=== PATIENT | male | born 1965 | race Caucasian/White ===

== ENCOUNTER 2018-09-30 21:15 | Inpatient (IN) ==
--- NOTE | 2018-09-30 22:25 | Emergency Department Note ---
Disposition Clinical Impression: Abdominal pain, Retroperitoneal tumor Disposition: Admitted As Inpatient Condition: Fair [facility]Primary Care Provider[facility] - Forms: Work/School Release Time of Disposition: 22:00 Abdominal Pain HPI - General Chief Complaint: ED Abdominal Pain Stated Complaint: mass on Kidney Time Seen by Provider: 09/30/18 21:17 Source: patient, EMS Mode of arrival: ambulatory Limitations: no limitations Nursing Notes Reviewed: Yes Vital Signs Reviewed: Yes - History of Present Illness HPI Narrative: 52-year-old male presents emergency department from the [facility] for further evaluation of a retroperitoneal mass. Patient has a large 26.4 x 21 x 30 cm mass in the left retroperitoneum. He was evaluated at the [facility] where he had multiple labs performed and a CT of the abdomen and pelvis. Patient initially sought evaluation secondary to early state ID and a constant abdominal pain over the past few weeks. He should not denies recent weight loss, denies night sweats. Patient denies fever, chills, nausea, vomiting, diarrhea, hematochezia, melena. Pain Scale: 4 - Related Data Home Medications Medication Instructions Recorded Confirmed Fluticasone Propionate Nasal 1 spr NS DAILY 09/30/18 09/30/18 [Flonase] Loratadine [Allergy Relief] 10 mg PO DAILY 09/30/18 09/30/18 Pantoprazole Sodium [Protonix] 40 mg PO DAILY 09/30/18 09/30/18 Allergies Allergy/AdvReac Type Severity Reaction Status Date / Time No Known Allergies Allergy Verified 09/30/18 22:04 All systems ED: reviewed and negative except as stated. Review of Systems: As Per HPI Abdominal Pain PMH - Past Medical History Medical history: Reports: hyperlipidemia, hypertension Male Surgical History: Reports: herniorrhaphy - Social History Smoking status: Never smoker Alcohol use: Reports: none Drug use: Reports: none Physical Exam General: Alert and in no acute distress Skin: Warm, dry, intact Head: Normocephalic and atraumatic Neck: Supple, trachea midline and no tenderness Cardiovascular: RRR, no murmur, normal perfusion Respiratory: CTAB, no wheezing, cough, or respiratory distress Musculoskeletal: Normal strength, no tenderness, swelling or deformity GI: Soft, nontender, distended abdomen Bowel sounds present Neuro: A&O to person, place, time and situation. No focal deficits noted on exam Psychiatric: cooperative and appropriate mood and affect. - General Limitations: no limitations General appearance: alert Course Vital Signs Temperature 98.3 F 09/30/18 21:20 Pulse Rate 95 09/30/18 21:20 Respiratory Rate 18 09/30/18 21:20 Blood Pressure 153/94 09/30/18 21:20 O2 Sat by Pulse Oximetry 98 09/30/18 21:20 Temperature 98.3 F 09/30/18 21:20 Pulse Rate 95 09/30/18 21:20 Respiratory Rate 18 09/30/18 21:20 Blood Pressure 153/94 09/30/18 21:20 O2 Sat by Pulse Oximetry 98 09/30/18 21:20 Oxygen Delivery Oxygen Delivery Room Air Abdominal Pain - MDM Narrative Medical decision making narrative: Patient denied chest pain or shortness of breath. Patient will be admitted to the hospitalist for further care and evaluation of this large mass. - Medical Records Medical records reviewed: Yes I reviewed the patient's medical records. - Lab Data Lab results reviewed: Yes I reviewed the patient's lab results.
--- NOTE | 2018-10-01 00:45 | Internal Med History&Physical ---
<Annalise Perez - Last Filed: 10/01/18 02:17> Date of Encounter: 10/01/18 Time of Encounter: 00:45 Internal Medicine - H&P: HPI Chief complaint: Sent from CT; Left-sided large retroperitoneal mass Admitted From: Home Plans for Post Hospital Care: Home History of present illness: Mr. Watson is a 52 year old male with past medical history significant for hypertension, hyperlipidemia, gout who presents from [facility] after CT of the abdomen and pelvis reveals left-sided retroperitoneal mass and hydronephrosis. Patient endorses 2 weeks of epigastric and right upper quadrant abdominal pain. Associated with pain that comes and goes, occasionally sharp, but usually dull, achy and rated 3/10. Also notes abdominal distention that has persisted over the course of the 2 weeks and even longer before that. Patient states that he has gained approximately 20 pounds from baseline. Associated symptoms include subjective fevers/chills and night sweats, increasing fatigue, weight gain, lethargy, malaise, increase in loose stools, decreased appetite, occasional lower back pain localized more to the left side. Patient was initially concerned about some gallbladder pathology due to right upper quadrant pain, association with intake of fatty foods that resolved when he does not eat. Patient recently had a colonoscopy 5 months ago during which a benign polyp was found and removed. Otherwise endorses no significant past medical history. History of hypertension but not on medication, and history of familial hypertriglyceridemia. Denies smoking, alcohol, drug use. Patient denies headache, lightheadedness/dizziness, vision changes, chest pain, palpitations, shortness of breath, vomiting, dysuria, hematuria, urinary frequency urinary urgency, flank pain. On initial evaluation, vitals were as follows: T = 98.3, HR = 95, RR = 18, BP = 153/94, O2 = 98% on room air CBC: Within normal limits BMP: Slightly elevated BUN/Cr = 23/1.37; GFR = 57.8; otherwise within normal limits LFTs: Within normal limits UA: Negative CT abdomen and pelvis without contrast. 1. 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 Considerations include renal cell carcinoma and other retroperitoneal neoplasm. IV contrast study may be helpful as clinically appropriate. 2. Moderate left hydronephrosis secondary to the large left retroperitoneal mass 3. Small free fluid in the pelvis 4. Splenomegaly Pt will be admitted to hospitalists for further evaluation of left-sided retroperitoneal mass. Past Med Surg Social Fam HX - Past Medical History Attestation: Yes The following information was validated with the patient. Source: patient, old records reviewed, obtained from family Medical history: GERD, hyperlipidemia, hypertension - Past Surgical History Additional surgical history: nasal sx. - Social History Smoking Status: Never smoker Smokeless Tobacco Status: No Alcohol use: none Drug use: none - Family History Mother Living Status: Still Living Hx Family Cardiac Disorders: Yes (htn, afib) Hx Family Endocrine Disorder: Yes (thyroid disease) Father Living Status: Still Living Hx Family Cancer: Yes (prostate cancer) Internal Medicine - H&P: Meds Fluticasone Propionate Nasal [Flonase] 1 spr NS DAILY PRN 09/30/18 [History] Loratadine [Allergy Relief] 10 mg PO DAILY PRN 09/30/18 [History] Pantoprazole Sodium [Protonix] 40 mg PO DAILY 09/30/18 [History] Calcium Citrate 200 mg PO DAILY 10/01/18 [History] Allergy/AdvReac Type Severity Reaction Status Date / Time No Known Allergies Allergy Verified 09/30/18 22:04 All Systems PM: A 10-system review of systems was performed and is negative for pertinent findings except as documented above in the HPI. - Constitutional Constitutional: anorexia, chills, fatigue, fever(s), malaise, night sweats, weight gain, no excessive sweating, no falls, no lethargy, no weakness, no weight loss - EENT Eyes: no blurry vision, no change in vision Ears: no decreased hearing Nose, mouth and throat: no dry mouth, no dysphagia, no facial pain, no nasal discharge, no neck pain, no post-nasal drip, no sinus pressure, no sore throat - Cardiovascular Cardiovascular ROS IM: no chest pain, no diaphoresis, no dyspnea, no dyspnea on exertion, no edema, no irregular heart rhythm, no lightheadedness, no palpitations, no syncope - Respiratory Respiratory: no cough, no dyspnea, no dyspnea on exertion - Gastrointestinal Gastrointestinal: abdominal pain, bloating, diarrhea, early satiety, loose stools, no hematemesis, no hematochezia, no melena, no nausea, no vomiting - Genitourinary Genitourinary ROS male: flank pain, no dysuria, no hematuria, no urinary frequency, no urinary hesitancy, no urinary incontinence, no urinary urgency - Musculoskeletal Musculoskeletal ROS IM: back pain, myalgias - Integumentary Integumentary IM: no rash, no jaundice - Neurological Neurological ROS: no confusion, no dizziness, no headache(s), no paresthesias, no tingling - Psychiatric Psychiatric: change in appetite - Endocrine Endocrine IM: fatigue - Constitutional Vitals: Temp Pulse Resp BP Pulse Ox 98.3 F 88 18 138/87 98 09/30/18 21:20 09/30/18 23:29 09/30/18 23:29 09/30/18 23:29 09/30/18 23:29 General appearance: Present: cooperative, A&O X 3, pleasant, no acute distress, answers questions appropriately Exam: GEN: AOx3; Resting comfortably in bed; NAD; Accompanied by , mother, daughters HEENT: Atraumatic, Normocephalic, EOMI, PERRLA, mucous membranes moist, no scleral icterus CARDIO: RRR, no murmurs, rubs, gallops RESP: CTAB, no wheezes, rales, rhonchi ABD: Distended, firm abdomen; tenderness to palpation in epigastric, RUQ; bowel sounds present; no guarding or rebound; negative Crane's sign; no CVA tenderness NEURO: CN 2-12 intact; no focal deficits EXT: no lower extremity edema b/l; no rashes or lesions; non tender to palpation Internal Med - H&P Results - Labs Labs: Lab results 09/30/18 from [facility]: CBC: WBC = 6.3 HB/HCT = 13.4/40.8 MCV = 82.4 Platelet = 321 CMP: NA = 139 K = 3.9 CL = 103 CO2 = 29 BUN/Cr = 22/1.37 GFR = 57.8 Glucose = 83 Calcium = 9.5 AST = 17 ALT = 23 Total bili = 0.7 ALP = 118 albumin = 3.9 Lipase = 150 Amylase = 44 Urinalysis: Negative - Assessment and plan (1) Retroperitoneal tumor Current Visit: Yes Status: Acute Assessment and plan: Mr. Watson is a 52 year old male with past medical history significant for hypertension, hyperlipidemia, gout who presents from [facility] after CT of the abdomen and pelvis reveals left-sided retroperitoneal mass and hydro nephrosis. Associated with 2 weeks epigastric, RUQ tenderness; constant dull, achy pain 3/10 Also notes abdominal distension - has gained 20lbs from baseline in the past month Notes fevers/chills, decreased appetite, fatigue, lethargy, malaise, loose stools CBC: Within normal limits BMP: Slightly elevated BUN/Cr = 23/1.37; GFR = 57.8; otherwise within normal limits LFTs: Within normal limits UA: Negative CT abdomen and pelvis without contrast. 1. 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 Considerations include renal cell carcinoma and other retroperitoneal neoplasm. IV contrast study may be helpful as clinically appropriate. 2. Moderate left hydronephrosis secondary to the large left retroperitoneal mass 3. Small free fluid in the pelvis 4. Splenomegaly PLAN: Monitor vitals Cont IVF Measure Is & Os Daily Weights Renal Ultrasound CBC, CMP in the AM Consider CT abdomen/pelvis WITH contrast OR MRI abdomen without contrast depending on kidney function Urology recommendations appreciated Oncology recommendations appreciated (2) Abdominal pain Current Visit: Yes Status: Acute Assessment and plan: Pt c/o persistent epigastric, RUQ abdominal pain for the past 2 weeks; noted as dull, achy, constant pain rated 3/10 - comes and goes Associated with decreased appetite, loose stools, weight gain Notes increasing abdominal distension - weight gain of 20lbs over the past few weeks CT Abd/Pelvis w/o contrast: Large Left Retroperitoneal Mass PLAN: See plan as above for workup of retroperitoneal mass Cont IVF Consider IR for paracentesis of possible ascites Pain control PRN Protonix QD Monitor Is & Os Daily Weights Qualifiers: Abdominal location: generalized Qualified Code(s): R10.84 - Generalized abdominal pain (3) Acute kidney injury Current Visit: Yes Status: Acute Assessment and plan: BUN/Cr on presentation: 22/1.37 GFR = 57.8 UA: Negative CT abdomen and pelvis without contrast. 1. 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 Considerations include renal cell carcinoma and other retroperitoneal neoplasm. IV contrast study may be helpful as clinically appropriate. 2. Moderate left hydronephrosis secondary to the large left retroperitoneal mass 3. Small free fluid in the pelvis 4. Splenomegaly PLAN: Likely secondary to hydronephrosis and kidney mass Cont IVF Recheck BMP in the AM Consider CT Abd/Pelvis w/ contrast if improved kidney function (4) DVT prophylaxis Current Visit: Yes Status: Acute Assessment and plan: Heparin SQ TID - Time Spent With Patient Total time spent is greater than 50% in coordination of care (as documented) at patient's floor/unit and/or counseling patient: less than 15 minutes <Geronimo Enriquez - Last Filed: 10/01/18 05:17> Date of Encounter: 10/01/18 Time of Encounter: 02:40 - Constitutional Constitutional: chills, fatigue, night sweats, weight gain - EENT Eyes: no blurry vision Ears: no ear pain, no tinnitus Nose, mouth and throat: no nasal congestion, no nasal discharge, no sore throat - Cardiovascular Cardiovascular ROS IM: no chest pain, no dyspnea - Respiratory Respiratory: no cough, no chest congestion - Gastrointestinal Gastrointestinal: abdominal pain, bloating, early satiety - Genitourinary Genitourinary ROS male: flank pain, no difficulty urinating, no dysuria, no hematuria - Integumentary Integumentary IM: no rash, no jaundice - Neurological Neurological ROS: no dizziness, no focal weakness, no frequent falls, no headache(s) - Psychiatric Psychiatric: no anxiety, no depression - Endocrine Endocrine IM: no polydipsia, no polyuria - Allergic/Immunologic Allergic/Immunologic: no GI upset with certain foods - Constitutional Vitals: Temp Pulse Resp BP Pulse Ox 97.9 F 71 16 107/68 97 10/01/18 04:50 10/01/18 04:50 10/01/18 04:50 10/01/18 04:50 10/01/18 04:50 General appearance: Present: A&O X 3, pleasant, no acute distress - Eye Eye exam: Present: EOMI, PERRL. Absent: scleral icterus - ENT ENT exam: Present: mucous membranes dry, normal exam - Neck Neck exam general surgery: Present: supple - Respiratory Respiratory exam: Present: CTAB. Absent: rales, rhonchi, wheezes - Cardiovascular Cardiovascular exam: Present: RRR, +S1, +S2 - GI/Abdominal GI/Abdominal exam: Present: distended, normal bowel sounds, tenderness (mild), no peritoneal signs. Absent: guarding, mass, rebound - Extremities Exam Extremities exam: Present: full ROM, warm, radial pulses palpable and symmetrical. Absent: calf tenderness, pedal edema, tenderness - Back Exam Back exam: Present: CVA tenderness (L). Absent: CVA tenderness (R) - Neurological Exam Neurological exam: Present: alert, oriented X3, no focal deficits, strengths equal and symetr throughout - Psychiatric Psychiatric exam: Present: normal affect, normal mood - Skin Skin exam: Present: dry, intact, warm - Time Spent With Patient Total time spent is greater than 50% in coordination of care (as documented) at patient's floor/unit and/or counseling patient: - Attending Attestation I discussed the patient [place], past medical history, lab data, imaging studies, and exam findings with Dr. Perez. I then saw and examined patient independently and met with his and family. I reviewed the records from [facility] as well. Certainly, it is concerning that he has some kind of retroperitoneal tumor. This is a noncontrast study, however. He did have a recent fall and landed on his back on concrete. I do not think this is a retroperitoneal bleed. However, that needs to be ruled out. He does have some mild hydronephrosis and acute kidney injury. We are going to hydrate him with IV fluids hoping to preserve his kidney function so he can proceed with CT imaging with IV contrast. For now, we will order a retroperitoneal ultrasound to evaluate his renal system. We will need oncology and urology consultation to assist in caring for and working up this patient. Other than my comments above and noted exam findings, I agree with Dr. Seymour's assessment and plan.
[2018-10-01] MEDS ORDERED: Naloxone 0.4 MG/ML INJ IVP PRN (01:14)
[2018-10-01] MEDS ORDERED: 0.9 % Sodium Chloride 1,000 ML IVC SCH (01:15)
[2018-10-01] MEDS: Acetaminophen 325 MG TABLET PO PRN ×2 (02:05→12:29)
[2018-10-01] MEDS ORDERED: Fluticasone Propionate Nasal 50 MCG/SPRAY BOTTLE NS PRN (02:50)
[2018-10-01] MEDS ORDERED: Loratadine 10 MG TABLET PO PRN (02:50)
[2018-10-01] MEDS ORDERED: *HR* Heparin 5,000 UNIT/ML VIAL SQ SCH (06:00)
[2018-10-01 07:36] LABS: Basophils % 0.5 %; Eosinophils # 0.1 K/mcL (0.0-0.6); Eosinophils % 1.6 %; Hematocrit 34.4 % (37.5-50.1); Hemoglobin 11.3 g/dL (12.9-16.9); Immature Granulocytes % 0.2 % (0-4); Lymphocytes # 0.9 K/mcL (0.6-4.6); Lymphocytes % 21.4 %; Mean Corpuscular HGB Conc 32.8 g/dL (31.6-35.5); Mean Corpuscular Hemoglobin 26.9 pg (28.0-33.3); Mean Corpuscular Volume 81.9 fL (83.0-100.0); Mean Platelet Volume 10.2 fL (9.4-12.4); Monocytes # 0.5 K/mcL (0.0-1.3); Monocytes % 11.3 %; Neutrophils # 2.8 K/mcL (1.6-8.9); Platelet Count 242 K/mcL (140-400)
--- NOTE | 2018-10-01 08:25 | Urology - Consult Note ---
Addendum entered and electronically signed by Corey Hawthorne MD 10/01/18 10:12: 52-year-old man presents with abdominal pain and night fevers. [facility] left-sided mass which seems to be arising from the lower pole of the left kidney. Given the size of the tumor, this is going to require a fairly extensive surgical removal. I think he would be best served at a higher level facility for this such as [facility]. I did contact care management to coordinate with the [place] regarding possible transfer. The hydronephrosis is not of much concern given that this kidney will likely be removed. There does appear to be some retroperitoneal lymphadenopathy. Urology will follow along, but again I do not recommend surgical removal at our institution given the complexity of this cancer. Original Note: Date of Encounter: 10/01/18 Time of Encounter: 07:45 - Assessment and Plan (1) Retroperitoneal tumor Current Visit: Yes Status: Acute Assessment and plan: Patient is a 52-year-old male who presents with a large retroperitoneal mass, likely arising from the lower pole of the left kidney. Reviewed CT results with patient. No ascites appreciated. Highly recommend inpatient transfer to tertiary care center, such as [facility]. Patient will likely need urologic oncologic intervention and an extensive surgical procedure to safely excise a tumor of this size. Patient is not eating well, and pain is persistent . Patient is in agreement to this plan and wishes to proceed with transfer. Will discuss with primary team and social work to facilitate transfer. (2) Acute kidney injury Current Visit: Yes Status: Acute Urology CN:HPI Consult date: 10/01/18 Reason for consult Urology: Other (left renal mass) History of present illness: Mr. Watson is a 52-year-old male who presents with a large left renal mass. Patient reports noticing vague upper abdominal pain and abdominal distention for the last 4-5 weeks. Patient states his abdominal pain has been accompanied with nighttime fever, with maximum temperature to 101.5. Patient also admits to decreased appetite and early satiety. Patient is established with the [facility], and he presented to the [facility] urgent care for evaluation. [facility] urgent care ordered a CT of the abdomen and pelvis revealing a massive tumor, likely arising from the lower pole of the left kidney. Patient was subsequently transferred to [facility] for further evaluation and urologic intervention. Patient denies any known family history of renal cancer. Patient states his father has a history of prostate cancer. Currently, patient states pain is well-controlled, and he denies any history of gross hematuria or changes in voiding or bowel habits. Patient admits to a 20 pound weight gain over the course of the last several months. Past Med Surg Social Fam HX - Past Medical History Medical history: GERD, hyperlipidemia, hypertension Psychiatric history: no psych history - Past Surgical History Additional surgical history: nasal sx. - Social History Smoking Status: Never smoker Smokeless Tobacco Status: No Alcohol use: none Drug use: none - Family History Mother Living Status: Still Living Hx Family Cardiac Disorders: Yes (htn, afib) Hx Family Endocrine Disorder: Yes (thyroid disease) Father Living Status: Still Living Hx Family Cancer: Yes (prostate cancer) Medications and Allergies Fluticasone Propionate Nasal [Flonase] 1 spr NS DAILY PRN 09/30/18 [History] Loratadine [Allergy Relief] 10 mg PO DAILY PRN 09/30/18 [History] Pantoprazole Sodium [Protonix] 40 mg PO DAILY 09/30/18 [History] Calcium Citrate 200 mg PO DAILY 10/01/18 [History] Allergy/AdvReac Type Severity Reaction Status Date / Time No Known Allergies Allergy Verified 09/30/18 22:04 Review of Systems - Constitutional chills, fatigue, fever(s) - EENT Nose, mouth and throat: no dizziness, no headache(s) - Cardiovascular no chest pain, no diaphoresis, no dyspnea - Respiratory no cough, no dyspnea - Gastrointestinal abdominal pain, nausea, no change in bowel habits, no vomiting - Genitourinary no change in urinary stream, no dysuria, no flank pain, no hematuria, no testicular pain, no urinary frequency, no urinary hesitancy, no urinary incontinence, no urinary urgency - Musculoskeletal no back pain, no muscle weakness - Integumentary no erythema, no rash - Neurological no confusion, no syncope - Psychiatric no anxiety, no confusion - Hematologic/Lymphatic no easy bleeding, no easy bruising - Allergic/Immunologic no throat swelling, no wheezing Exam Initial Vital Signs Temp Pulse Resp BP Pulse Ox 98.3 F 95 18 153/94 98 09/30/18 21:20 09/30/18 21:20 09/30/18 21:20 09/30/18 21:20 09/30/18 21:20 - General physical appearance Present: well developed, no distress, no pain - Eyes Present: PERRL, normal ocular movement - ENT Present: normal nares, no hearing loss, no congestion - Neck Present: no masses, trachea midline - Respiratory Present: normal respiratory effort - Cardiovascular Cardiovascular exam IM: RRR - Abdomen Abdomen: Present: tender (epigastric tenderness), organomegaly (marked enlargement of left kidney ), distended (fullness and distention over the left upper abdomen, extending to epigastrum; softer palpation to right upper abdomen ) - Integumentary Present: no rash, no abnormal pigmentation - Neurologic Present: normal coordination - Musculoskeletal Present: other (normal posture ) Urology Results - Labs 10/01/18 06:25 Abnormal lab results Hgb 11.3 g/dL (12.9-16.9) L 10/01/18 06:25 Hct 34.4 % (37.5-50.1) L 10/01/18 06:25 MCV 81.9 fL (83.0-100.0) L 10/01/18 06:25 MCH 26.9 pg (28.0-33.3) L 10/01/18 06:25 RDW 15.0 % (11.5-14.5) H 10/01/18 06:25 All other labs normal. - Imaging CT scan - abdomen: report reviewed, image reviewed CT scan - pelvis: report reviewed, image reviewed Consult Discharge Plan - Plan [facility]errals: [facility] [Primary Care Provider] -
[2018-10-01 09:23] LABS: Alanine Aminotransferase 9 Units/L (7-52); Albumin 3.8 g/dL (3.5-5.7); Albumin/Globulin Ratio 1.6 (1.1-2.2); Alkaline Phosphatase 84 Units/L (34-104); Aspartate Amino Transferase 9 Units/L (13-39); BUN/Creatinine Ratio 19 (6-26); Bilirubin,Total 0.7 mg/dL (0.3-1.0); Blood Urea Nitrogen 20 mg/dL (6-20); Calcium 9.3 mg/dL (8.6-10.3); Carbon Dioxide 26 mEq/L (23-29); Chloride 107 mEq/L (98-107); Globulin 2.4 g/dL (2.4-3.5); Glucose 114 mg/dL (70-105); Osmolality,Calculated 297 (280-300); Potassium 3.9 mEq/L (3.5-5.1); Sodium 142 mEq/L (136-145); Total Protein 6.2 g/dL (6.4-8.9); eGFR For Non-African Americans > 60 (> 60)
[2018-10-01 10:16] VITALS: BP 141/91
--- NOTE | 2018-10-01 11:10 | Discharge Summary ---
- NOTES TO OUTPATIENT PROVIDER Notes to Outpatient Provider: as per [facility] recs Date of Encounter: 10/01/18 Time of Encounter: 11:06 - Discharge Diagnosis (1) Retroperitoneal tumor Priority: Primary Status: Acute (2) Abdominal pain Priority: Secondary Status: Acute Qualifiers: Abdominal location: generalized Qualified Code(s): R10.84 - Generalized abdominal pain (3) Acute kidney injury Priority: Secondary Status: Acute Hospital course: Mr. Watson is a 52 year old male with past medical history significant for hypertension, hyperlipidemia, gout who presents from [facility] after CT of the abdomen and pelvis reveals left-sided retroperitoneal mass and hydronephrosis. Patient endorses 2 weeks of epigastric and right upper quadrant abdominal pain. Associated with pain that comes and goes, occasionally sharp, but usually dull, achy and rated 3/10. Also notes abdominal distention that has persisted over the course of the 2 weeks and even longer before that. Patient states that he has gained approximately 20 pounds from baseline. Associated symptoms include subjective fevers/chills and night sweats, increasing fatigue, weight gain, lethargy, malaise, increase in loose stools, decreased appetite, occasional lower back pain localized more to the left side. Patient was initially concerned about some gallbladder pathology due to right upper quadrant pain, association with intake of fatty foods that resolved when he does not eat. Patient recently had a colonoscopy 5 months ago during which a benign polyp was found and removed. Otherwise endorses no significant past medical history. History of hypertension but not on medication, and history of familial hypertriglyceridemia. Denies smoking, alcohol, drug use. Patient denies headache, lightheadedness/dizziness, vision changes, chest pain, palpitations, shortness of breath, vomiting, dysuria, hematuria, urinary frequency urinary urgency, flank pain. On initial evaluation, vitals were as follows: T = 98.3, HR = 95, RR = 18, BP = 153/94, O2 = 98% on room air CBC: Within normal limits BMP: Slightly elevated BUN/Cr = 23/1.37; GFR = 57.8; otherwise within normal limits LFTs: Within normal limits UA: Negative CT abdomen and pelvis without contrast. 1. 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 Considerations include renal cell carcinoma and other retroperitoneal neoplasm. IV contrast study may be helpful as clinically appropriate. 2. Moderate left hydronephrosis secondary to the large left retroperitoneal mass 3. Small free fluid in the pelvis 4. Splenomegaly khadra was admitted for further evaluation of left-sided retroperitoneal mass. urology was consulted and it was recommended to transfer him to a tertiary center given the size of the mass. as per urology " Given the size of the tumor, this is going to require a fairly extensive surgical removal. I think he would be best served at a higher level facility for this such as [facility]. I did contact care management to [facility]. The hydronephrosis is not of much concern given that this kidney will likely be removed. There does appear to be some retroperitoneal lymphadenopathy. " family ( and mother) at bedside and discussed urology recommendations with the patient and he is in agreement with transfer to [facility] understanding the risks associated with transfer. [facility] transfer center was called I spoke to Tasha and patient was accepted for transfer. Nursing staff aware. Discharge discussed with: patient, family, nurse, community health consultant - Time Spent with Patient Total time spent providing and/or coordinating discharge services: Greater than 30 minutes (45) - Discharge Medications Home Medications: Fluticasone Propionate Nasal [Flonase] 1 spr NS DAILY PRN 09/30/18 [History] Loratadine [Allergy Relief] 10 mg PO DAILY PRN 09/30/18 [History] Pantoprazole Sodium [Protonix] 40 mg PO DAILY 09/30/18 [History] Calcium Citrate 200 mg PO DAILY 10/01/18 [History] Allergies/Adverse Reactions: Allergy/AdvReac Type Severity Reaction Status Date / Time No Known Allergies Allergy Verified 09/30/18 22:04 Date of admission: 10/01/18 03:34 Primary care physician: [facility] Consults: 10/01/18 01:20 Consult to Pastoral Services [CONS] Routine Comment: 10/01/18 02:02 Consult to Oncology [CONS] Routine Consulting Provider: Oncology [facility] Reason for Consult: Large Left Retroperitoneal Mass Call Completed: No Consult to Urology [CONS] Routine Consulting Provider: Urology [facility] Reason for Consult: Large Left Retroperitoneal Mass Call Completed: No - Constitutional Vitals: Temp Pulse Resp BP Pulse Ox 98.5 F 83 18 141/91 96 10/01/18 10:15 10/01/18 10:15 10/01/18 10:15 10/01/18 10:15 10/01/18 10:15 General appearance: Present: A&O X 3, pleasant, no acute distress Exam: GEN: AOx3; Resting comfortably in bed; NAD; Accompanied by , mother HEENT: Atraumatic, Normocephalic, EOMI, PERRLA, mucous membranes moist, no scleral icterus CARDIO: RRR, no murmurs, rubs, gallops RESP: CTAB, no wheezes, rales, rhonchi ABD: Distended, firm abdomen; tenderness to palpation in epigastric, RUQ; bowel sounds present; no guarding or rebound; negative Crane's sign; no CVA tenderness NEURO: CN 2-12 intact; no focal deficits EXT: no lower extremity edema b/l; no rashes or lesions; non tender to palpation - Patient Status Disposition: Transfer Critical Access Hosp Condition: Fair Functional capacity at discharge: independent ambulation Overall status at discharge: patient is not back to baseline - Discharge Instructions Follow Up With: [facility] [Primary Care Provider[facility] - - Diet and Activity Activity: other Diet: other
== END 2018-10-01 14:50 | disposition critical access hospital (66) | DRG 375 ==
LOC: 3NENU 21:15 → EMEROOARM 21:15 → 3NENU 10-01 00:30
PROVIDERS: ADMIT Internal Medicine; ATTEND Internal Medicine